=== PATIENT | male | born 1960 | race Caucasian/White ===

== ENCOUNTER 2017-04-19 13:56 | Emergency (ER) | payer MEDICAID ==
[2017-04-19] MEDS ORDERED: HYDROCODONE/APAP 5/325MG TABLET PO ONE (14:12)
[2017-04-19] MEDS ORDERED: IPRATROPIUM/ALBUTEROL (0.5MG/3MG) NEB INH ONE (14:12)
[2017-04-19] MEDS ORDERED: AZITHROMYCIN 500 MG TABLET PO ONE (14:12)
[2017-04-19] MEDS ORDERED: PREDNISONE 20 MG TAB PO ONE (14:12)
--- NOTE | 2017-04-19 14:12 | Emergency Department Record ---
History of Present Illness - General Chief Complaint: Cough Stated Complaint: PAIN WHEN COUGHING, RUNNY NOSE,ELEVATED TEMP Time Seen by Provider: 04/19/17 14:04 Source: Patient Mode of Arrival: Ambulatory Limitations: No limitations - History of Present Illness Initial Comments: 57 yo male presents with cough for the last few days. He has some associated fever as well. He states the cough is productive with thick yellow sputum. No hemoptysis. He is sore with coughing. He does smoke. His has a history of COPD. No exertional chest pain. He does have a history of CAD. No edema. No nausea, vomiting or diarrhea. MD Complaint: Cough Onset/Timin -: Days(s) (3) Quality: Aching Consistency: Constant Improves With: Nothing Associated Symptoms: Cough Treatments Prior to Arrival: None - Related Data Home Medications Medication Instructions Recorded Confirmed Last Taken Levothyroxine Sodium 50 mcg PO DAILY 04/19/17 04/19/17 Unknown Metoprolol Succinate [Toprol Xl] 25 mg PO DAILY 04/19/17 04/19/17 Unknown Sertraline HCl [Zoloft] 50 mg PO DAILY 04/19/17 04/19/17 Unknown Umeclidinium Brm/Vilanterol Tr 1 puff IH RESP.DAILY 04/19/17 04/19/17 04/19/17 [Anoro Ellipta 62.5-25 Mcg INH] Previous Rx's Medication Instructions Recorded Albuterol Sulfate [Proair Hfa] 1 - 2 puff IH .EVERY 4-6 HOURS PRN 04/19/17 #1 inhaler Azithromycin [Zithromax] 250 mg PO DAILY #4 tablet 04/19/17 Hydrocodone/Acetaminophen [[place] 1 each PO Q8H #10 tablet 04/19/17 5-325 Tablet] Prednisone [Prednisone 20Mg] 20 mg PO BID #10 tab 04/19/17 Allergies Allergy/AdvReac Type Severity Reaction Status Date / Time No Known Drug Allergies Allergy Verified 04/19/17 14:10 Travel Screening - Travel/Exposure Within Last 30 Days Have you traveled within the last 30 days?: No Review of Systems Constitutional: Reports: Chills, Fever. Denies: Malaise, Weakness Eyes: Denies: Eye discharge, Eye pain, Photophobia, Vision change ENT: Reports: Congestion. Denies: Ear pain, Throat pain Respiratory: Reports: Cough, Dyspnea, Wheezes. Denies: Hemoptysis Cardiovascular: Reports: Chest pain (chest hurts with a forced cough). Denies: Syncope Endocrine: Denies: Fatigue Gastrointestinal: Denies: Abdominal pain, Diarrhea, Nausea, Vomiting Genitourinary: Denies: Dysuria, Frequency, Hematuria Musculoskeletal: Denies: Arthralgia, Back pain, Joint swelling, Myalgia, Neck pain Skin: Denies: Bruising, Change in color, Rash Neurological: Denies: Headache, Numbness, Tremors, Weakness Psychiatric: Denies: Anxiety Hematological/Lymphatic: Denies: Blood Clots, Easy bleeding, Easy bruising, Swollen glands Physical Exam - General General Appearance: Alert, Oriented x3, Cooperative, No acute distress Limitations: No limitations - Head Head exam: Normal inspection - Eye Eye exam: Normal appearance, PERRL. negative: Conjunctival injection, Periorbital swelling - ENT ENT exam: Normal exam, Mucous membranes moist Ear exam: Normal external inspection Nasal Exam: Normal inspection Mouth exam: Normal external inspection - Neck Neck exam: Normal inspection - Respiratory Respiratory exam: Decreased breath sounds, Prolonged expiratory, Wheezes ( moderately diffusely wheezing). negative: Normal lung sounds bilaterally, Accessory muscle use, Chest wall tenderness, Respiratory distress, Rhonchi, Stridor - Cardiovascular Cardiovascular Exam: Regular rate, Normal rhythm, Normal heart sounds Peripheral Pulses: 2+: Radial (R), Radial (L) - GI/Abdominal GI/Abdominal exam: Soft. negative: Tenderness - Rectal Rectal exam: Deferred - exam: Deferred - Extremities Extremities exam: Normal inspection, Full ROM, Normal capillary refill. negative: Pedal edema, Tenderness - Back Back exam: Denies: CVA tenderness (R), CVA tenderness (L) - Neurological Neurological exam: Alert, Normal gait, Oriented X3. negative: Abnormal gait - Psychiatric Psychiatric exam: Normal affect, Normal mood - Skin Skin exam: Dry, Intact, Normal color, Warm Course Vital Signs 04/19/17 14:01 Temperature 98.1 F Pulse Rate 69 Respiratory 20 Rate Blood Pressure 126/83 Pulse Ox 98 - Reevaluation(s) Reevaluation #1: The vitals were reviewed. No acute changes. No hypxia or tachycardia. 04/19/17 14:04 04/19/17 14:32 On recheck after the patient's treatment he subjectively feels much improved His lungs are much improved with resolution of the wheezing. 04/19/17 14:55 The CXR was read as no acute process. Findings CW hyperinflation of COPD Disposition Disposition: Discharge Clinical Impression: COPD with exacerbation Disposition: Home, Self-Care Condition: (1) Good Instructions: COPD (Chronic Obstructive Pulmonary Disease) (ED) Additional Instructions: Call your doctor tomorrow for close follow up of your symptoms Take the antibiotic, steroids as directed Return if worse, short of breath or any new symptoms Prescriptions: Albuterol Sulfate [Proair Hfa] 1 - 2 puff IH .EVERY 4-6 HOURS PRN #1 inhaler PRN Reason: Difficulty In Breathing Azithromycin [Zithromax] 250 mg PO DAILY #4 tablet Hydrocodone/Acetaminophen [[place] 5-325 Tablet] 1 each PO Q8H #10 tablet Prednisone [Prednisone 20Mg] 20 mg PO BID #10 tab Forms: Patient Portal Access Time of Disposition: 14:56 Quality - Quality Measures Quality Measures: N/A - Blood Pressure Screening Does Patient Have Any of the Following: No Blood Pressure Classification: Pre-Hypertensive BP Reading Systolic Measurement: 126 Diastolic Measurement: 83 Screening for High Blood Pressure: < Pre-Hypertensive BP, F/U Documented > [ G8950] Pre-Hypertensive Follow-up Interventions: Referral to alternative/primary care provider.
--- NOTE | 2017-04-20 10:09 | RADIOLOGY REPORT ---
EXAM: CHEST, TWO VIEWS HISTORY: PRODUCTIVE COUGH FOR THE PAT WEEK. SMOKER. TECHNIQUE: PA and lateral upright views of the chest were obtained. Comparison: None. FINDINGS: The heart, mediastinum, and pulmonary vasculature are normal. There is mild calcification of the thoracic aorta. The lungs are mildly hyperinflated. There are no acute infiltrates or effusions. There is no pneumothorax. A 5 mm nodule is present within the left upper lobe laterally and likely represents a calcified granuloma. The remaining lung castillo are clear. The bones appear intact. IMPRESSION: 1. NO ACUTE CHEST PATHOLOGY. 2. MILD HYPERINFLATION CONSISTENT WITH COPD. 3. PROBABLE CALCIFIED GRANULOMA WITHIN THE LEFT UPPER LOBE. JOB NUMBER: [id number] [facility]
== END 2017-04-19 15:09 | disposition home or self-care (01) ==
LOC: ER 13:56
DX: J44.1 Chronic obstructive pulmonary disease with (acute) exacerbation (principal); F17.210 Nicotine dependence, cigarettes, uncomplicated
CPT/HCPCS: 99283; 99284; 71020; 94640; J7512

== ENCOUNTER 2017-07-27 08:17 | Emergency (ER) | payer MEDICAID ==
[2017-07-27] MEDS ORDERED: LORAZEPAM 2 MG/ML VIAL IV ONE ×3 (08:20→10:27)
[2017-07-27] MEDS ORDERED: 0.9 % SODIUM CHLORIDE 1,000 ML BAG IV ONE (08:20)
--- NOTE | 2017-07-27 08:26 | Emergency Department Record ---
History of Present Illness - General Stated Complaint: ALTERED MENTAL STATE Time Seen by Provider: 07/27/17 08:19 Source: Family, EMS Mode of Arrival: Stretcher Limitations: Altered mental status - History of Present Illness Initial Comments: 57 yo male presents with altered mental status. He was last seen normal at 10pm. At 7:30am his found him wandering the house, non verbal trying to sort through the mail. EMS was called and found him in this state wandering, walking shuffling through the mail. Accu check was greater that 100. He has a history of prior seizures. No prior strokes. He had an OK in 2015. On arrival to the ED the patient had a witnessed seizure in the ambulance MD Complaint: Altered mental status -: Minutes(s) Consistency: Constant Context: Other (seizure history) - [place] Coma Scale Eye Response: (1) No response Motor Response: (1) No motor response Verbal Response: (2) Incomprehsible sounds Scott Total: 4 - Related Data Home Medications Medication Instructions Recorded Confirmed Last Taken Clopidogrel Bisulfate [Clopidogrel] 1 tab PO DAILY 07/27/17 07/27/17 07/26/17 Levetiracetam [Keppra] 750 mg PO BID 07/27/17 07/27/17 07/26/17 Previous Rx's Medication Instructions Recorded Albuterol Sulfate [Proair Hfa] 1 - 2 puff IH .EVERY 4-6 HOURS PRN 04/19/17 #1 inhaler Allergies Allergy/AdvReac Type Severity Reaction Status Date / Time No Known Drug Allergies Allergy Verified 04/19/17 14:10 Review of Systems ROS unobtainable: Due to mental status Past Medical History - SOCIAL HISTORY Smoking Status: Current every day smoker Drug Use: Occasional Drug Use Detail:: Marijuana - RESPIRATORY Hx Respiratory Disorders: Yes Hx COPD: Yes Hx Pneumonia: Yes - CARDIOVASCULAR Hx Cardio Disorders: Yes Hx Heart Attack: Yes Hx Hypertension: Yes Comment:: CAD, high cholesterol - NEURO Hx Neuro Disorders: No - GI Hx GI Disorders: No - Hx Genitourinary Disorders: Yes Hx Prostate Problems: Yes (enlarged) - ENDOCRINE Hx Endocrine Disorders: Yes Hx Thyroid Disease: Yes - MUSCULOSKELETAL Hx Musculoskeletal Disorders: Yes - PSYCH Hx Psych Problems: Yes Hx Depression: Yes - HEMATOLOGY/ONCOLOGY Hx Hematology/Oncology Disorders: No Family Medical History Hx Alcohol Use: Father *Cancer Comment: Aunt-colon cancer Physical Exam - General General Appearance: Severe distress, Other (No verbal, no respiratory distress) Limitations: Altered mental status - Head Head exam: Atraumatic, Normal inspection - Eye Eye exam: Normal appearance, PERRL, Other (Eyes are roving in a horizontal plane mostly to the right, pupils equal at about 3mm and slight reaction). negative: EOMI, Nystagmus, Periorbital swelling, Scleral icterus - ENT ENT exam: Normal exam, Normal orophraynx Ear exam: Normal external inspection Nasal Exam: Normal inspection Mouth exam: Normal external inspection Teeth exam: Normal inspection (dentures) Throat exam: Normal inspection. negative: Tonsillar erythema, Tonsillar exudate - Neck Neck exam: Normal inspection, Full ROM. negative: Tenderness - Respiratory Respiratory exam: Normal lung sounds bilaterally, Accessory muscle use. negative: Respiratory distress - Cardiovascular Cardiovascular Exam: Regular rate, Normal rhythm, Normal heart sounds Peripheral Pulses: 2+: Radial (R), Radial (L) - GI/Abdominal GI/Abdominal exam: Soft, Normal bowel sounds. negative: Tenderness - Rectal Rectal exam: Deferred - exam: Deferred - Extremities Extremities exam: Normal inspection, Full ROM, Normal capillary refill. negative: Pedal edema, Tenderness - Back Back exam: Reports: Normal inspection, Full ROM. Denies: Muscle spasm, Rash noted, Tenderness - Neurological Neurological exam: Alert, Normal gait, Oriented X3, Reflexes normal - Psychiatric Psychiatric exam: Normal affect, Normal mood - Skin Skin exam: Dry, Intact, Normal color, Warm Course - Reevaluation(s) Reevaluation #1: The patient remains with a 3-4 GCS No signs of coming out of post ictal state Recommended airway protection given he is not awakening in any sense if just post ictal. I discussed this with the . He understands the need for airway management to get necessary tests completed RSI was used to easily intubate the patient with one attempt with 8-0 ETT tube Good Bilateral BS with fogging and positive ETCO2 07/27/17 08:35 07/27/17 09:11 CBC WBC count is 20 The lactic acid is 17 The HCO3 is 14 The AG is 29 Glucose is 126 LFTs are normal Troponin is normal at <0.01 07/27/17 09:27 ABG pO2 136, pCO2 42, HCO3 17, pH 7.23, CO 6.5 (smoker) FiO2 40, Hgb is 13.0 K is 4.3 CR is 0.9 with normal GFR 07/27/17 09:46 07/27/17 09:47 CXR was normal with good placement HCT was reviewed. Radiologist is waiting for images from [facility]. Radiology notified. 07/27/17 09:51 EMR reviewed [facility] DC 06/13/17 for new onset seizures. 07/27/17 09:55 The HCT was read as no acute process The patient is demonstrating some spontaneous movement but not purposeful or on command, not making eye contact. [facility] contacted and informed the need for ICU bed. 07/27/17 10:[address] Gaytan of the [facility] ICU. She accepts the patient for transfer EKG NSR, rate 73, intervals normal, axis normal, ST normal 07/27/17 10:29 The patient is now having some spontaneous cough with some spontaneous arm movement Will continue sedation for transfer. 07/27/17 10:49 Delays waiting for bed at [facility]. 07/27/17 10:59 Bed now assigned at [facility] EMS transport was paged Medical Decision Making - Lab Data Result diagrams: 07/27/17 08:20 07/27/17 08:20 Critical Care Time Critical Care Time: Yes Total Critical Care Time: 125 Disposition Disposition: Transfer Clinical Impression: Seizure, Altered mental status Disposition: Acute Care Hospital Transfer Transfer To: [facility] Reason For Transfer: Intubation, altered mental status Accepting Physician: Lucila Time Discussed w/Accepting Physician: 10:20 Condition: (5) Critical Forms: Patient Portal Access Time of Disposition: 09:48 Quality - Quality Measures Quality Measures: N/A - Blood Pressure Screening Does Patient Have Any of the Following: Active Dx of HTN Blood Pressure Classification: Normal BP Reading Systolic Measurement: 113 Diastolic Measurement: 72 Screening for High Blood Pressure: Patient Exclusion, Hx of HTN [G9744] Pre-Hypertensive Follow-up Interventions: Referral to alternative/primary care provider.
[2017-07-27 08:39] LABS: HEMATOCRIT 49.6 % (42.0-52.0); HEMOGLOBIN 16.5 gm/dl (14.0-18.0); MEAN CELL VOLUME 99.6 fl (81-97); MEAN CORPUSCULAR HEMOGLOBIN 33.1 pg (27-33); MEAN CORPUSCULAR HGB CONC 33.3 g/dl (32-36); MEAN PLATELET VOLUME 10.5 fl (7.4-10.4); PLATELET COUNT 266 K/uL (130-400); RED BLOOD COUNT 4.98 M/uL (4.40-5.70); RED CELL DISTRIBUTION WIDTH 14.3 % (11.5-14.5)
[2017-07-27] MEDS ORDERED: ROCURONIUM BROMIDE 50MG/5ML VIAL IV ONE (08:46)
[2017-07-27] MEDS ORDERED: MIDAZOLAM HCL 2MG/2ML VIAL IV ONE ×2 (08:46→09:43)
[2017-07-27 08:54] LABS: PARTIAL THROMBOPLASTIN TIME 29.3 SECONDS (24.5-39.1); PROTHROMBIN TIME (PATIENT) 10.5 SECONDS (9.5-12.1)
[2017-07-27 08:58] LABS: WHITE BLOOD COUNT W/O DIFF 20.2 K/uL (4.2-12.2)
[2017-07-27 09:06] LABS: ALB/GLOB RATIO 1.4 (1.1-1.8); ALBUMIN 4.8 g/dL (4.0-5.0); ALKALINE PHOSPHATASE 132 U/L (40-129); ALT/SGPT 40 U/L (<41); AST/SGOT 47 U/L (10.0-50.0); BLOOD UREA NITROGEN 11 mg/dL (6-20); CREATININE 0.9 mg/dL (0.7-1.2); EST GLOMERULAR FILTRATION RATE > 60 mL/min; GLUCOSE,RANDOM 126 mg/dL (74-109); TOTAL PROTEIN 8.2 g/dL (6.6-8.7)
[2017-07-27 09:09] LABS: ACETAMINOPHEN < 5.0 ug/mL (10.0-30.0); SALICYLATE < 0.3 mg/dL (2.8-20)
[2017-07-27 09:18] LABS: ARTERIAL BLOOD GAS BASE EXCESS -9.8 mmol/L (-2 - 3); ARTERIAL BLOOD GAS HCO3 17.1 mmol/L (18-23); ARTERIAL BLOOD GAS PCO2 42.7 mmHg (35-48); ARTERIAL BLOOD GAS pH 7.23 (7.35-7.45); CARBOXYHEMOGLOBIN 6.5 % (0-1.5); METHEMOGLOBIN 0.7 % (0.0-1.5); O2 HEMOGLOBIN 91.8 % vol (94-99)
[2017-07-27 09:19] LABS: ALLEN TEST PASS
[2017-07-27] MEDS ORDERED: FENTANYL PF 100MCG/2ML VIAL IVP ONE ×2 (09:43→10:27)
[2017-07-27] MEDS ORDERED: MIDAZOLAM HCL 50 MG in 0.9 % SODIUM CHLORIDE 100ML 100 ML IVPB SCH (09:45)
--- NOTE | 2017-07-27 09:51 | RADIOLOGY REPORT ---
EXAM: PORTABLE CHEST HISTORY: RESPIRATORY FAILURE. TECHNIQUE: A portable AP upright view of the chest was performed. FINDINGS: Endotracheal tube tip is just above the level of the johnny. The heart size is normal. The lung castillo are clear. The osseous structures are normal. IMPRESSION: ENDOTRACHEAL TUBE IS IN SATISFACTORY POSITION. NO ACUTE PULMONARY DISEASE PROCESS. JOB NUMBER: [id number] MTDD
--- NOTE | 2017-07-27 10:03 | CT SCAN REPORT ---
EXAM: CT OF THE BRAIN WITHOUT CONTRAST HISTORY: MENTAL STATUS CHANGE. TECHNIQUE: Sequential axial images were obtained from the foramen magnum to the vertex without contrast administration. FINDINGS: The brain volume is normal. There is no large territorial infarct, hemorrhage, mass effect or midline shift. No extraaxial fluid collection. The orbits, paranasal sinuses, and mastoid air cells are normal. IMPRESSION: NO ACUTE INTRACRANIAL ABNORMALITY IS APPRECIATED. JOB NUMBER: [id number] MTDD
[2017-07-27 10:48] LABS: AMPHETAMINE SCREEN URINE NOT DETECTED; BARBITURATE SCREEN URINE NOT DETECTED; BENZODIAZEPINE SCREEN URINE NOT DETECTED; COCAINE SCREEN URINE NOT DETECTED; METHADONE SCREEN URINE NOT DETECTED; METHAMPHETAMINE SCREEN NOT DETECTED; OPIATE SCREEN URINE NOT DETECTED; OXYCODONE SCREEN URINE NOT DETECTED; PHENCYCLIDINE SCREEN URINE NOT DETECTED; PROPOXYPHENE SCREEN URINE NOT DETECTED; THC SCREEN URINE NOT DETECTED; TRICYCLIC ANTIDEPRESSANT SCRN NOT DETECTED
[2017-07-27 11:14] LABS: ARTERIAL BLD GAS O2 SATURATION 98.9 % (95-98); ARTERIAL BLOOD GAS HCO3 21.8 mmol/L (18-23); CARBOXYHEMOGLOBIN 4.3 % (0-1.5); METHEMOGLOBIN 0.9 % (0.0-1.5); O2 HEMOGLOBIN 93.7 % vol (94-99); TOTAL HEMOGLOBIN 13.4 g/dl (14-18)
== END 2017-07-27 11:54 | disposition short-term general hospital (02) ==
LOC: ER 08:17
DX: G40.919 Epilepsy, unspecified, intractable, without status epilepticus (principal); R41.82 Altered mental status, unspecified; J44.9 Chronic obstructive pulmonary disease, unspecified; I10 Essential (primary) hypertension; I25.2 Old myocardial infarction; F17.210 Nicotine dependence, cigarettes, uncomplicated
CPT/HCPCS: 31500 ×2; 51702; 96376; 99291 ×2; 96374; 96375; 96361; 99292; 83605; 85730; 85610; 82375; 80053; 82803; 80305; 84484; 85027; 71045; 70450; 36600; 94002; 93005; 93010; G0480 ×3; J3010; J2060; 80320; 80329; J7030